=== PATIENT | female | born 1995 | race Caucasian/White ===

== ENCOUNTER 2020-04-03 12:46 | Emergency (ER) | payer BC ==
[~2020-04-03] VITALS: Ht 167.6 cm; Wt 62.3 kg
[2020-04-03 13:43] VITALS: BP 142/85
[2020-04-03] MEDS ORDERED: PRED20TA PO (14:55)
--- NOTE | 2020-04-03 15:27 | NUR ---
[employer] SW[facility] FOR COVID TEST OBTAINED AND SENT TO LAB.
== END 2020-04-03 15:30 | disposition home or self-care (01) ==
LOC: ER 12:47
DX: U07.1 COVID-19 (principal); R06.02 Shortness of breath; L50.9 Urticaria, unspecified; Z88.2 Allergy status to sulfonamides; Z88.8 Allergy status to other drugs, medicaments and biological substances; Z79.899 Other long term (current) drug therapy
CPT/HCPCS: 36415; 87635; 99283